=== PATIENT | female | born 1960 | race Caucasian/White ===

== ENCOUNTER 2017-09-12 18:25 | Emergency (ER) | payer SELFPAY ==
[~2017-09-12] VITALS: Ht 162.6 cm; Wt 48.2 kg
[~2017-09-12 18:25] MED LIST: ALBU8I INH; CLON.2 PO; IBUP400T20 PO; IBUP600 PO; LOPR50TA12 PO; MAXZ PO; PRED50TA PO; PROM25SU8 PO; SUBO8MIS SL; XANA0.5T PO
[2017-09-12 18:33] VITALS: BP 148/97; PULSE 109; RESP 16; TEMP 99; O2SAT 95
[2017-09-12] MEDS ORDERED: CLON0.1T PO (18:49)
[2017-09-12] MEDS ORDERED: METH2.5T PO (18:49)
[2017-09-12] MEDS ORDERED: CLON1 PO (18:49)
[2017-09-12] MEDS ORDERED: PRED20 PO (18:49)
[2017-09-12] MEDS ORDERED: LORazepam 2 MG/ML VIAL IM ONE (19:00)
--- NOTE | 2017-09-12 19:08 | PD ---
HPI Chief Complaint: Anxiety Time Seen by Provider: 18:52 Travel History International Travel<30 days: No Contact w/Intl Traveler<30days: No Traveled to known affect area: No History of Present Illness HPI 57-year-old female patient with history of anxiety attack, presents to the ER today because she has been having worsening and panic attacks, has not been able to sleep the last 4 days, and states that she has been taking her anxiety medications without significant relief. She is fairly upset and stressed out, but denies any suicidal or homicidal ideation. She actually becomes upset with me for asking. She states that she is just upset because she has been having ongoing problems with chronic ear issues and it is now being diagnosed. She states that she has been following up with Dr. White and has been put on high- dose steroids. Modifying Factors: None Associated Signs & Symptoms: Severe anxiety attacks Risk Factors: History of anxiety attack PFSH Past Medical History Hx Anticoagulant Therapy: No Bipolar Disorder: Yes Anxiety: Yes Depression: Yes Heart Rhythm Problems: No Cardiovascular Problems: Yes ([place], HTN) Chest Pain: Yes (OCCASSIONAL D/T PAST SURGERY) Congestive Heart Failure: No COPD: No Cerebrovascular Accident: No Diabetes: No Diminished Hearing: Yes (CHRONIC EAR INFECTIONS) Gastrointestinal Disorders: Yes GERD: Yes Headaches: Yes (OCCASSIONAL) Hepatitis: No Hypertension: Yes Implanted Vascular Access Dvce: No Kidney Stones: No Musculoskeletal: Yes (SCIATICA) Neurologic: Yes Psychiatric: Yes (BIPOLAR) Immunizations Current: Yes Myocardial Infarction: Yes Renal Failure: No Seizures: Yes (remote history of seizures cause unknown/2006 LAST SEIZURE) Ulcer: Yes PNEUMOCCOCAL Vaccine (Year): 2 ?: Not Menopausal: Yes : 0 Para: 0 Past Surgical History Abdominal Surgery: Yes (ESOPHAGEAL ) Appendectomy: Yes Gynecologic Surgery: Yes (HYSTERECTOMY 2004) Hysterectomy: Yes Neurologic Surgery: No Oral Surgery: Yes (ESOPHOGEAL REPAIR 1998) Tonsillectomy: Yes Other Surgery: Yes (ESOPHAGEAL REPAIR) Social History Alcohol Use: No (quit 2011) Tobacco Use: Yes (1/2PPD) Substance Use: No Allergies-Medications (Allergen,Severity, Reaction): Coded Allergies: No Known Allergies (Verified , 09/12/17) Reported Meds & Prescriptions Reported Meds & Active Scripts Active Reported Prednisone 20 Mg Tab 80 Mg PO DAILY Take 40 mg (2 tablets) daily for 5 days Methotrexate 2.5 Mg Tab 3 Mg PO Q7D Clonidine (Clonidine HCl) 0.1 Mg Tab 0.1 Mg PO BID Klonopin (Clonazepam) 1 Mg Tab 1 Mg PO BID Review of Systems Except as stated in HPI: all other systems reviewed are Neg Physical Exam Narrative GENERAL: Well-developed middle age white female patient currently in moderate distress. She is very anxious. Awake and oriented 3. SKIN: Focused skin assessment warm/dry. HEAD: Atraumatic. Normocephalic. EYES: Pupils equal and round. No scleral icterus. No injection or drainage. ENT: No nasal bleeding or discharge. Mucous membranes pink and moist. NECK: Trachea midline. No JVD. CARDIOVASCULAR: Regular rate and rhythm. No murmur appreciated. RESPIRATORY: No accessory muscle use. Clear to auscultation. Breath sounds equal bilaterally. GASTROINTESTINAL: Abdomen soft, non-tender, nondistended. Hepatic and splenic margins not palpable. MUSCULOSKELETAL: No obvious deformities. No clubbing. No cyanosis. No edema. NEUROLOGICAL: Awake and alert. No obvious cranial nerve deficits. Motor grossly within normal limits. Normal speech. PSYCHIATRIC: Appropriate very anxious mood and affect; insight and judgment poor. Data Data Last Documented VS Vital Signs Date Time Temp Pulse Resp B/P (MAP) Pulse Ox O2 Delivery O2 Flow Rate FiO2 09/12/17 18:33 99.0 109 16 148/97 (114) 95 Orders Orders Lorazepam Inj (Ativan Inj) (09/12/17 19:00) [facility] Medical Decision Making Medical Screen Exam Complete: Yes Emergency Medical Condition: Yes Medical Record Reviewed: Yes Differential Diagnosis Anxiety attack versus steroid side effect Narrative Course Patient was given IM Ativan in the ER. At this point, I do suspect that the steroid may be worsening the issues as well and my plan would be to release her when she has more emotionally stable, and have her follow-up with ENT and primary care physician for further evaluation of her medications and for Further chronic treatment of anxiety attacks. Return for new issues as needed. The plan has discussed with her and she states understanding. Physician Communication Physician Communication Case is signed out at [address] Valdez awaiting reevaluation after the Ativan treatment. Diagnosis Primary Impression: Anxiety attack Condition: Stable Fidel Carlos MD Sep 12, 2017 19:08
[2017-09-12 19:15] VITALS: BP 141/76; PULSE 92; RESP 20; O2SAT 95
[2017-09-12 20:01] VITALS: BP 108/67; PULSE 85; RESP 20; O2SAT 96
--- NOTE | 2017-09-12 20:16 | PD ---
Physical Exam Date Seen by Provider: Sep 12, 2017 Time Seen by Provider: 19:15 Narrative Accepted in transfer of care from Dr Carlos Data Data Last Documented VS Vital Signs Date Time Temp Pulse Resp B/P (MAP) Pulse Ox O2 Delivery O2 Flow Rate FiO2 09/12/17 20:02 09/12/17 20:01 85 20 96 09/12/17 18:33 99.0 Orders Orders Lorazepam Inj (Ativan Inj) (09/12/17 19:00) Ed Discharge Order (09/12/17 20:06) [facility] Medical Record Reviewed: Yes Supervised Visit with [facility]: No Differential Diagnosis Accepted in transfer of care from Dr Carlos; please refer to her dictation Narrative Course Accepted in transfer of care from Dr Carlos; follow up patient response to Ativan administration --reportedly just administered @ 8PM patient's nurse reports she is feeling better; upon my assessment patient is sitting on stretcher in no apparent distress pleasant stating that she feels much better after the IM Ativan 2 MG, reports that worked very well for her and she would like a prescription for Ativan. Patient states that her managing provider is out of town until Saturday and she has an appointment with her provider on Saturday and would like us to prescribe her Ativan for the weekend. Patient appears to be in no distress, not suicidal or homicidal, appears comfortable and it has been shared with the patient that as this is her doctor's office is most likely open on Saturday and her covering provider for her primary physician can see her and write a prescription for her for the and then ongoing prescriptions can be provided by her managing physician on Saturday at her time of appointment. As patient is already taking and prescribed Klonopin she is aware that I have declined providing her a prescription for Ativan 'for the weekend'. Patient states "well that's that", reports that she is ready to go and has walked out of the room accompanied by her spouse. Patient unwilling to wait for discharge instructions. Diagnosis Primary Impression: Anxiety attack Referrals: Primary Care Physician 1 day Patient Instructions: General Instructions Additional Instruction: Follow-up with your primary care provider Continue current medications as presently prescribed by your managing physician Return to the emergency department for any concerns or change in condition increase fluid hydration May use over the counter acetaminophen/Tylenol as needed/as tolerated for fever 100.4F or greater or for minor pain Med/Other Pt SpecificInfo: No Change to Meds Disposition: 01 DISCHARGE HOME Condition: Stable Jennyfer Valdez MD Sep 12, 2017 20:16
== END 2017-09-12 20:14 | disposition home or self-care (01) ==
LOC: PHED 18:25
DX: F41.8 Other specified anxiety disorders (principal); I10 Essential (primary) hypertension; H91.90 Unspecified hearing loss, unspecified ear; I25.2 Old myocardial infarction; F17.200 Nicotine dependence, unspecified, uncomplicated; Z86.59 Personal history of other mental and behavioral disorders; Z86.79 Personal history of other diseases of the circulatory system; Z87.19 Personal history of other diseases of the digestive system; Z87.39 Personal history of other diseases of the musculoskeletal system and connective tissue; Z86.69 Personal history of other diseases of the nervous system and sense organs
CPT/HCPCS: 96372; 99284; J2060